=== PATIENT | male | born 1995 | race Two or more races ===

== ENCOUNTER 2018-05-02 14:41 | Emergency (ER) | payer MEDICAID ==
[~2018-05-02] VITALS: Ht 167.6 cm; Wt 81.6 kg
[2018-05-02 14:59] VITALS: BP 145/86
[2018-05-02] MEDS ORDERED: diphenhdrAMINE HCL 25 MG CAP PO ONE (16:00)
[2018-05-02] MEDS ORDERED: KETOROLAC TROMETH 60MG/2ML VIAL IM ONE (16:00)
[2018-05-02] MEDS ORDERED: PROMETHAZINE HCL 25 MG/ML 1ML IM ONE (16:00)
== END 2018-05-02 16:33 | disposition home or self-care (01) ==
LOC: ER 14:41
DX: R51 Headache (principal)
CPT/HCPCS: 70450; 96372; 99284; J1885; J2550

== ENCOUNTER 2021-08-16 13:31 | Emergency (ER) | payer MEDICAID, OTHER ==
[~2021-08-16] VITALS: Ht 167.6 cm; Wt 86.2 kg
[2021-08-16 13:37] VITALS: BP 140/87
[2021-08-16] MEDS ORDERED: KETOROLAC TROMETH 60MG/2ML VIAL IM ONE (14:30)
[2021-08-16] MEDS ORDERED: TETANUS-DIPTH-ACEL PERTUSSIS 0.5ML SYR Tdap IM ONE (14:30)
[2021-08-16] MEDS ORDERED: NAPR500T31 PO (14:38)
[2021-08-16] MEDS ORDERED: AMOX-277 PO (14:38)
== END 2021-08-16 14:48 | disposition home or self-care (01) ==
LOC: ER 13:43
DX: S71.152A Open bite, left thigh, initial encounter (principal); S81.832A Puncture wound without foreign body, left lower leg, initial encounter; F17.210 Nicotine dependence, cigarettes, uncomplicated; Z79.2 Long term (current) use of antibiotics; Z79.899 Other long term (current) drug therapy; W54.0XXA Bitten by dog, initial encounter; Y93.89 Activity, other specified; Y92.89 Other specified places as the place of occurrence of the external cause; Y99.8 Other external cause status
CPT/HCPCS: 90471; 90715; 96372; 99284; J1885